=== PATIENT | female | born 1960 | race Caucasian/White ===

== ENCOUNTER → 2017-02-23 | Outpatient (CLI) | payer BC, OTHER ==
--- NOTE | 2017-02-24 17:54 | Pulmonary Function Test ---
Pulmonary Function Test Date of Procedure:: 02/23/17 INDICATION:: Cough Referring Provider: Gladys Electrical Panel Builder: Smita David WASHING MACHINE INSTALLER - Report Spirometry: FVC 3.54 L 116% FEV1 2.61 L 108% FEV1/FVC % 74 predicted 83 FEF 25-75% 1.81 L 68% Lung Volume: Total lung capacity 4.90 L 100% Vital capacity 3.54 L 116% Inspiratory capacity 2.34 L FRC N 2 2.55 98% ERV 0.94 RV 1.36 74% RV/TLC % 28 predicted 37 Diffusion Capactity: DLCO 16.8 77% DLCO/VA 3.66 93% Impression: Minimal obstructive ventilatory defect as designated by a decrease in the FEF 25 -75%. No restrictive ventilatory defect, hyperinflation or air trapping. Mild decrease in diffusion capacity.
== END ==
LOC: RT 13:28
PROVIDERS: ATTEND Nurse Practitioner
DX: R05 Cough (principal)
CPT/HCPCS: 94010; 94727; 94729

== ENCOUNTER 2017-04-26 10:09 | Day surgery (SDC) | payer BC, OTHER ==
--- NOTE | 2017-03-29 09:33 | EKG REPORT ---
SEVERITY:- ABNORMAL ECG - SINUS RHYTHM RIGHT BUNDLE BRANCH BLOCK : Confirmed by: Calvin Aquino 29-Mar-2017 09:33:22
[2017-03-29 10:13] LABS: HEMATOCRIT 39.5 % (36.0-47.0); HEMOGLOBIN 13.6 g/dL (12.0-15.5); HGB HCT DIFFERENCE 1.3; MEAN CORPUSCULAR HEMOGLOBIN 31.1 pg (27.0-33.4); MEAN CORPUSCULAR HGB CONC 34.4 g/dL (32.0-36.0); MEAN CORPUSCULAR VOLUME 90 fl (80-97); RED BLOOD COUNT 4.38 10^6/uL (3.72-5.28); RED CELL DISTRIBUTION WIDTH 14.1 % (11.5-14.0); WHITE BLOOD COUNT 7.5 10^3/uL (4.0-10.5)
[2017-03-29 10:43] LABS: ANION GAP 14 (5-19); BLOOD UREA NITROGEN 21 mg/dL (7-20); CALCIUM 9.8 mg/dL (8.4-10.2); CARBON DIOXIDE 25 mmol/L (22-30); CHLORIDE 99 mmol/L (98-107); CREATININE RESULT 0.63 mg/dL (0.52-1.25); GLUCOSE 296 mg/dL (75-110); POTASSIUM 4.9 mmol/L (3.6-5.0); SODIUM 138.1 mmol/L (137-145)
[~2017-04-26 10:09] MED LIST: ACETAMINOPHEN 325 MG TABLET PO PRN; LACTATED RINGERS 1000 ML IV PRN; LIDOCAINE 0.5% INJ-PF (5 MG/ML) 50 ML SDV SUBCUT PRN
[2017-04-26 11:15] LABS: PROTHROMBIN TIME 13.8 SEC (11.4-15.4)
[2017-04-26] MEDS ORDERED: PROPOFOL INJ 200 MG/20 ML VIAL IV ONE (11:30)
--- NOTE | 2017-04-26 12:39 | Operative Report ---
Operative Report DATE OF SURGERY: 04/26/17 PREOPERATIVE DIAGNOSIS: Family history of colon cancer. Abnormal PET scan POSTOPERATIVE DIAGNOSIS: Same OPERATION: Colonoscopy SURGEON: KAZ DE SANTIAGO ANESTHESIA: LMAC TISSUE REMOVED OR ALTERED: None COMPLICATIONS: None ESTIMATED BLOOD LOSS: None INTRAOPERATIVE FINDINGS: Normal-appearing colon. PROCEDURE: Informed consent was obtained. Patient was brought to the operating room placed on the operating table on her left side. The procedure was done under LMAC. Digital rectal exam revealed no palpable masses in the anal canal. Endoscope was passed via the patient's anus into the cecum. Bowel prep was good. Visualization was good. The cecum, right colon, transverse colon, descending colon, sigmoid colon, and the rectum were all normal with no polyps and no masses. No evidence of inflammatory changes of the mucosa. The scope was passed up again for desufflation. Patient tolerated procedure well with no apparent complications. Patient with family history of colon cancer. Recommend repeat colonoscopy in 5 years. Sooner if she has any concerning symptoms.
--- NOTE | 2017-04-26 12:41 | PDOC DISCHARGE SUMMARY ---
Discharge Summary (SDC) - Discharge Final Diagnosis: Family history of colon cancer. Abnormal PET scan. Date of Surgery: 04/26/17 Discharge Date: 04/26/17 Condition: Good Treatment or Instructions: Underwent colonoscopy. September discharge patient home when met discharge criteria. Follow-up with me in 2 weeks. Referrals: GILDA CHAMBERS FNP [Primary Care Provider] - Discharge Diet: As Tolerated Discharge Activity: Activity As Tolerated, No Driving - No driving today or tomorrow. Report the Following to Your Physician Immediately: Increase in Pain - Severe abdominal pain, Fever over 101 Degrees, Unusual Bleeding
[2017-04-26 14:33] VITALS: BP 124/69
== END 2017-04-26 14:35 | disposition home or self-care (01) ==
LOC: END 10:09
PROVIDERS: ATTEND Surgery
PROC: 0DJD8ZZ Inspection of Lower Intestinal Tract, Via Natural or Artificial Opening Endoscopic (ICD-10-PCS; principal; 2017-04-26 12:00)
DX: R93.5 Abnormal findings on diagnostic imaging of other abdominal regions, including retroperitoneum (principal); Z80.0 Family history of malignant neoplasm of digestive organs; I10 Essential (primary) hypertension; K21.9 Gastro-esophageal reflux disease without esophagitis; E78.00 Pure hypercholesterolemia, unspecified; I25.10 Atherosclerotic heart disease of native coronary artery without angina pectoris; E11.9 Type 2 diabetes mellitus without complications; I25.2 Old myocardial infarction; Z85.3 Personal history of malignant neoplasm of breast; Z87.891 Personal history of nicotine dependence; Z79.84 Long term (current) use of oral hypoglycemic drugs; Z79.899 Other long term (current) drug therapy; Z79.82 Long term (current) use of aspirin; Z79.02 Long term (current) use of antithrombotics/antiplatelets; Z79.4 Long term (current) use of insulin
CPT/HCPCS: 45378; 93005; 36415 ×2; 82962; 85027; 85610; 85730; 80048; 93010; J2704; 810